=== PATIENT | male | born 1995 | race American Indian/Alaskan Native ===

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

== ENCOUNTER 2018-10-03 11:19 | Emergency (ER) | payer OTHER ==
[2018-10-03 11:22] VITALS: BMI 25.8
[2018-10-03 11:26] VITALS: RESP 18; TEMP 98.2
[2018-10-03] MEDS ORDERED: TDAP Vaccine 0.5 mL Syr IM ONE (11:55)
--- NOTE | 2018-10-03 12:17 | ED PDOC ---
Arrival/HPI - General Chief Complaint: Abnormal Skin Integrity Time Seen by Provider: 10/03/18 11:22 Historian: Patient - History of Present Illness Narrative History of Present Illness (Text): 10/03/18 12:15 A 23 year old male presents to the emergency department complaining of right dorsal hand laceration. Patient reports at approximately 03:00, patient was drinking and punched glass because he was upset. States he did not take any medication for the pain to right hand. Patient denies any other traumas/injuries, SI/HI, anxiety, fever, chills, difficulty moving hand, rash, or any other complaints at this time. Also, he mentions his last tetanus shot was 6 years ago. No PMD Time/Duration: Other (03:00) Past Medical History - Provider Review Nursing Documentation Reviewed: Yes - Infectious Disease Hx of Infectious Diseases: None - Pulmonary Hx Bronchitis: Yes - Psychiatric Hx Substance Use: No Family/Social History - Physician Review Nursing Documentation Reviewed: Yes Family/Social History: No Known Family HX Smoking Status: Heavy Smoker > 10 Cigarettes Daily Hx Alcohol Use: Yes Hx Substance Use: No Allergies/Home Meds Allergies/Adverse Reactions: Allergies No Known Allergies Allergy (Verified 11/17/16 13:31) Review of Systems - Physician Review All systems were reviewed & negative as marked: Yes - Review of Systems Constitutional: absent: Fatigue, Fevers, Night Sweats Eyes: absent: Vision Changes ENT: absent: Hearing Changes Respiratory: absent: SOB, Cough Cardiovascular: absent: Chest Pain, Palpitations, Edema Gastrointestinal: absent: Abdominal Pain, Stool Changes, Constipation, Diarrhea, Hematochezia, Hematemesis Genitourinary Male: absent: Dysuria, Frequency, Hematuria Musculoskeletal: absent: Arthralgias Skin: Laceration (right dorsal hand laceration). absent: Rash Psychiatric: absent: Anxiety, Suicidal Ideation (and no homicidal ideation) Physical Exam Vital Signs Reviewed: Yes Vital Signs Temp Pulse Resp BP Pulse Ox 10/03/18 11:19 98.2 F 80 18 108/62 96 Temperature: Afebrile Blood Pressure: Normal Pulse: Regular Respiratory Rate: Normal Appearance: Positive for: Well-Appearing, Non-Toxic, Comfortable Pain Distress: None Mental Status: Positive for: Alert and Oriented X 3 - Systems Exam Head: Present: Atraumatic, Normocephalic Pupils: Present: PERRL Extroacular Muscles: Present: EOMI Conjunctiva: Present: Normal Ears: Present: Normal, NORMAL TM Mouth: Present: Moist Mucous Membranes Pharnyx: Present: Normal. No: ERYTHEMA, EXUDATE, TONSILS ENLARGED, Peritonsilar Swelling, Uvular Deviation, Strider Nose (External): Present: Atraumatic. No: Abrasion Nose (Internal): Present: Normal Inspection. No: Septal Hematoma Neck: Present: Normal Range of Motion. No: Meningeal Signs, MIDLINE TENDERNESS Respiratory/Chest: Present: Clear to Auscultation, Good Air Exchange. No: Respiratory Distress, Accessory Muscle Use Cardiovascular: Present: Regular Rate and Rhythm, Normal S1, S2. No: Murmurs Abdomen: No: Tenderness, Distention, Peritoneal Signs Back: Present: Normal Inspection. No: CVA Tenderness, Midline Tenderness Upper Extremity: Present: Normal Inspection, Normal ROM, NORMAL PULSES, Neurovascularly Intact, Other (no snuffbox tenderness ). No: Cyanosis, Edema, Erythema Lower Extremity: Present: Normal Inspection, NORMAL PULSES. No: Edema, Cyanosis, Deformity Neurological: Present: GCS=15, CN II-XII Intact, Speech Normal Skin: Present: Warm, Dry, Normal Color, Laceration (right hand dorsal avulsion wound at the base of first metacarpal; no visible bone/tendon; good hemostasis). No: Rashes Psychiatric: Present: Alert, Oriented x 3, Normal Insight, Normal Concentration Medical Decision Making ED Course and Treatment: 10/03/18 12:20 Impression: 23 year old male with right hand dorsal laceration. N/V intact, no cellulitis / crepitus noted. No KNavel signs to distal thumb. Good radial pulse. Flap wound with likely viable. Will seek xr to rule out FB, clean and close wound as wound time <12 hours. Differential Diagnosis included but are not limited to: Retained Foreign Body vs. avulsion Laceration Plan: -- Tylenol -- Boostrix Vaccine -- Right Hand X-Ray -- Reassess and disposition Progress Notes: 10/03/18 12:53 Xray unremarkable, no fb noted no snuffbox pain 10/03/2018 13:25 Right Hand X-Ray IMPRESSION: Unremarkable right hand radiographs. Dictator: Michele Ohara MD 10/03/18 14:55 Sutured flap site, good hemostasis. Remains N/V intact Pt in NAD given return indications, ppx antibiotics and f/u - RAD Interpretation Radiology Orders: 10/03/18 11:55 HAND RIGHT 3 VIEWS [RAD] Stat - Medication Orders Current Medication Orders: Discontinued Medications Acetaminophen (Tylenol 325mg Tab) 650 mg PO STAT STA Stop: 10/03/18 11:55 Tetanus/Reduced Diphtheria/Acell Pertussis (Boostrix Vaccine Inj) 0.5 ml IM .ONCE ONE Stop: 10/03/18 11:56 Procedure: Wound Repair - Time Performed Time Performed: 14:35 - Consent Obtained Consent obtained: Emergent consent implied - Location Location:: Right, Dorsal, Lateral, Hand Shape:: Other (avulsion flap) Dimensions Length cm: 2 Dimensions width cm: 1 Depth:: Subcutaneous fascia (mostly epidermis) - Anesthetic Technique Anesthetic Technique: Local Local/Regional Anesthetic:: Lidocaine 1% - Debris Debris:: None - Irrigated Irrigated with ml of normal saline: 1L - Complexity Complexity:: Simple (one layer) - Wound repair method Sutures:: # (5), Size (5-0), Type (prolene), Technique (simple interrupted) - Patient tolerated procedure Patient Tolerated Procedure:: Well - Scribe Statement The provider has reviewed the documentation as recorded by the Scribe Cirilo Sanchez Provider Scribe Attestation: All medical record entries made by the Scribe were at my direction and personally dictated by me. I have reviewed the chart and agree that the record accurately reflects my personal performance of the history, physical exam, medical decision making, and the department course for this patient. I have also personally directed, reviewed, and agree with the discharge instructions and disposition. Disposition/Present on Arrival - Present on Arrival Any Indicators Present on Arrival: No History of DVT/PE: No History of Uncontrolled Diabetes: No Urinary Catheter: No History of Decub. Ulcer: No History Surgical Site Infection Following: None - Disposition Have Diagnosis and Disposition been Completed?: Yes Diagnosis: Laceration Disposition: HOME/ ROUTINE Disposition Time: 14:25 Condition: GOOD Discharge Instructions (ExitCare): Wound Care (DC), Laceration Repair With Stitches (DC) Additional Instructions: RETURN IF YOU NOTICE ANY INFECTION, YELLOWISH DRAINAGE OR ABNORMAL COLOR CHANGE IN COLOR OF THE FLAP. SEE HAND SURGERY DR. CLAROS WITHIN 2 DAYS ELEAZAR REEVES, thank you for letting us take care of you today. Your provider was Arthur Ward and you were treated for cut on his right hand ( laceration). The emergency medical care you received today was directed at your acute symptoms. If you were prescribed any medication, please fill it and take as directed. It may take several days for your symptoms to resolve. Return to the Emergency Department if your symptoms worsen, do not improve, or if you have any other problems. Please contact your doctor or call one of the physicians/clinics you have been referred to that are listed on the Patient Visit Information form that is included in your discharge packet. Bring any paperwork you were given at discharge with you along with any medications you are taking to your follow up visit. Our treatment cannot replace ongoing medical care by a primary care provider outside of the emergency department. Thank you for allowing the [facility] team to be part of your care today. If you had an X-Ray or CT scan: A Radiologist will review the ED reading if any change in treatment is needed we will contact you. If you had a blood, urine, or wound culture: It will take several days for the results, if any change in treatment is needed we will contact you. If you had an STI test: It will take 48 hours for the results. Please call after 1 week if you have not heard back. Prescriptions: Cephalexin [Keflex] 500 mg PO QID 7 Days #28 capsule Referrals: Jen Renee MD [Medical Doctor] - Follow up with primary Abi Claros MD [Staff Provider] - Follow up with primary Markus Bruno MD [Staff Provider] - Follow up with primary [facility] [Outside] - [place] up with [place] [facility] [place] - Follow up with primary [facility] [place] [Outside] - Follow up with primary Zak Perdue MD [Staff Provider] - Follow up with primary Forms: [facility] (Hebrew)
--- NOTE | 2018-10-03 13:25 | RAD ---
PROCEDURE: Right Hand Radiographs. HISTORY: ?fB punched glass COMPARISON: None. FINDINGS: BONES: No acute fracture or destructive bony lesion identified. JOINTS: No subluxation or dislocation. SOFT TISSUES: Normal. OTHER FINDINGS: None. IMPRESSION: Unremarkable right hand radiographs.
[2018-10-03] MEDS ORDERED: Lidocaine 1% Inj (20ml) IJ STA (13:58)
[2018-10-03] MEDS ORDERED: Bacitracin 500 Units/gm Oint Foilpak UD ONE (15:11)
[2018-10-03 17:54] VITALS: BP 114/69; PULSE 77; O2SAT 98
== END 2018-10-03 15:30 | disposition home or self-care (01) ==
LOC: ED 11:19
DX: S61.411A Laceration without foreign body of right hand, initial encounter (principal); W25.XXXA Contact with sharp glass, initial encounter

== ENCOUNTER 2018-10-15 17:03 | Emergency (ER) | payer OTHER ==
[2018-10-15 17:07] VITALS: BMI 27.4
[2018-10-15 17:12] VITALS: BP 135/77; PULSE 70; RESP 18; TEMP 97.7; O2SAT 98
--- NOTE | 2018-10-15 17:22 | ED PDOC ---
Arrival/HPI - General Chief Complaint: Suture/Staple Removal Time Seen by Provider: 10/15/18 17:05 Historian: Patient - History of Present Illness Narrative History of Present Illness (Text): 10/15/18 17:16 23 y/o male with PMH of HIV presents to the ED for suture removal. Pt had sutures placed to the right 1st digit on 10/03 and was told to return for removal in 10 days. Pt took most of his prophylactic antibiotics but stopped early because they were upsetting his stomach. Denies fever, chills, wound drainage/warmth/redness, nausea, vomiting, dizziness, or any other associated symptoms. Past Medical History - Infectious Disease Hx of Infectious Diseases: None - Pulmonary Hx Bronchitis: Yes - Psychiatric Hx Substance Use: No Family/Social History - Physician Review Nursing Documentation Reviewed: Yes Family/Social History: No Known Family HX Smoking Status: Heavy Smoker > 10 Cigarettes Daily Hx Alcohol Use: Yes Hx Substance Use: No Allergies/Home Meds Allergies/Adverse Reactions: Allergies No Known Allergies Allergy (Verified 10/15/18 17:07) Home Medications: Home Meds Medication Instructions Recorded Confirmed Emtricitabine/Tenofovir (Tdf) 1 tab PO DAILY 10/15/18 10/15/18 [Truvada 100 mg-150 mg Tablet] Review of Systems - Review of Systems Constitutional: Normal. absent: Fatigue, Fevers Respiratory: Normal. absent: SOB, Cough Cardiovascular: Normal. absent: Chest Pain, Palpitations Gastrointestinal: Normal. absent: Abdominal Pain, Stool Changes, Nausea, Vomiti ng, Appetite Changes Musculoskeletal: Arthralgias. absent: Back Pain, Neck Pain, Joint Swelling Skin: Laceration (healing). absent: Rash Neurological: Normal. absent: Headache, Dizziness Physical Exam Vital Signs Reviewed: Yes Vital Signs Temp Pulse Resp BP Pulse Ox 10/15/18 17:11 97.7 F 70 18 135/77 98 Temperature: Afebrile Blood Pressure: Normal Pulse: Regular Respiratory Rate: Normal Appearance: Positive for: Well-Appearing, Non-Toxic, Comfortable Pain Distress: None Mental Status: Positive for: Alert and Oriented X 3 - Systems Exam Head: Present: Atraumatic, Normocephalic Pupils: Present: PERRL Extroacular Muscles: Present: EOMI Conjunctiva: Present: Normal Mouth: Present: Moist Mucous Membranes Respiratory/Chest: Present: Clear to Auscultation, Good Air Exchange. No: Respiratory Distress, Accessory Muscle Use Cardiovascular: Present: Regular Rate and Rhythm, Normal S1, S2, Peripheal Pulses Present Back: Present: Normal Inspection. No: CVA Tenderness, Paraspinal Tenderness Upper Extremity: Present: Normal ROM, NORMAL PULSES, Neurovascularly Intact, Temperature Abnormalties (mild warmth over healing laceration), Capillary Refill < 2s, Other (well healing circular laceration to dorsum of 1st metacarpal right hand; mild erythema, warmth, and tenderness to central skin flap; no fluctuance, no streaking). No: Normal Inspection, Cyanosis, Edema Lower Extremity: Present: Normal ROM Neurological: Present: GCS=15, CN II-XII Intact, Speech Normal, Motor Func Grossly Intact, Normal Sensory Function, Gait Normal Skin: Present: Warm, Dry, Normal Color, Laceration (well healing with 6 sutures intact to dorsum of right thumb, no drainage or fluctuance, see extremity exam). No: Rashes Psychiatric: Present: Alert, Oriented x 3, Normal Insight, Normal Concentration, Normal Affect, Normal Mood Medical Decision Making ED Course and Treatment: 10/15/18 17:46 Initial Plan: * wound cleaning * suture removal 6 sutures removed from right thumb without difficulty. Pt tolerated procedure well without complication. Bacitracin applied and area covered with sterile dressing. Will extend course of antibiotics secondary to warmth and tenderness to healing skin flap. Advised hand and PMD followup. Diagnostic testing results and plan of care discussed with patient. Strict instructions given regarding prescription use, importance of followup, and signs/symptoms to return to ER including fever, chills, worsening pain, signs of wound infection, or any other new/worsening symptoms. Pt verbalized understanding of discussion. Patient is A&Ox3, ambulating with steady gait, with vital signs stable for discharge. Disposition/Present on Arrival - Present on Arrival Any Indicators Present on Arrival: No History of DVT/PE: No History of Uncontrolled Diabetes: No Urinary Catheter: No History of Decub. Ulcer: No History Surgical Site Infection Following: None - Disposition Have Diagnosis and Disposition been Completed?: Yes Diagnosis: Encounter for removal of sutures Disposition: HOME/ ROUTINE Disposition Time: 17:15 Patient Problems: Current Active Problems Problem Status Onset Encounter for removal of sutures Acute Condition: GOOD Discharge Instructions (ExitCare): Stitches Removal Additional Instructions: Keflex every 6 hours for 7 days Keep area clean and dry Followup with hand doctor within 2 days Followup with primary doctor within 2 days Return to ER with any new/worsening symptoms Prescriptions: Cephalexin [Keflex] 500 mg PO QID 7 Days #28 capsule Referrals: Abi Claros MD [Staff Provider] - Follow up with primary Forms: [facility] (Portuguese), WORK NOTE
[2018-10-15] MEDS ORDERED: Bacitracin Ointment 30 GM TUBE TOP STA (17:26)
[2018-10-15] MEDS ORDERED: Bacitracin 500 Units/gm Oint Foilpak UD ONE (17:42)
== END 2018-10-15 17:56 | disposition home or self-care (01) ==
LOC: ED 17:03
DX: Z48.02 Encounter for removal of sutures (principal); F17.210 Nicotine dependence, cigarettes, uncomplicated; Z21 Asymptomatic human immunodeficiency virus [HIV] infection status